=== PATIENT | male | born 1970 | race Caucasian/White ===

== ENCOUNTER 2016-12-01 02:09 | Emergency (ER) | payer OTHER ==
[~2016-12-01] VITALS: Ht 188 cm; Wt 157.4 kg
[2016-12-01 02:13] VITALS: TEMP 36.7; Ht 188 cm; Wt 157.4 kg
[2016-12-01] MEDS ORDERED: KETOROLAC TROMETHAMINE 30 MG/ML VIAL IV STA (02:22)
[2016-12-01 02:35] VITALS: O2SAT 98
[2016-12-01 02:48] LABS: BASO % 0.3 %; BASO ABS # 0.03 K/uL (0-0.2); COMPLETE YES; EOS % 0.8 %; HEMATOCRIT 43.5 % (42-52); IG% 0.4 %; LYMPH % 25.8 %; LYMPH ABS # 2.57 K/uL (1.2-3.4); MEAN CELL VOLUME 86.7 fL (80-100); MEAN CORPUSCULAR HEMOGLOBIN 29.5 pg (25-34); MEAN PLATELET VOLUME 8.8 fL (7.4-10.4); MONO % 7.4 %; NEUT % 65.3 %; PLATELET COUNT 216 K/uL (130-400); RED BLOOD COUNT 5.02 M/uL (4.7-6.1); WHITE BLOOD COUNT 9.95 K/uL (4.8-10.8)
[2016-12-01 03:08] LABS: BUN/CREATININE RATIO 14.6 (10-20); CALCIUM 8.5 mg/dl (8.5-10.1); CREATININE 0.75 mg/dl (0.60-1.40); POTASSIUM 3.6 mmol/L (3.5-5.1)
[2016-12-01] MEDS ORDERED: INSDGIPEN SC (03:11)
[2016-12-01] MEDS ORDERED: EZET10TA63 PO (03:11)
[2016-12-01] MEDS ORDERED: POTA10CA28 PO (03:11)
[2016-12-01] MEDS ORDERED: BENZ1GEL24 TOP (03:11)
[2016-12-01] MEDS ORDERED: TRAZ100T29 PO (03:11)
[2016-12-01] MEDS ORDERED: BUSP15TA70 PO (03:11)
[2016-12-01] MEDS ORDERED: HYDR-3983 PO (03:11)
[2016-12-01] MEDS ORDERED: FLUO40CA8 PO (03:11)
[2016-12-01] MEDS ORDERED: LISI-729 PO (03:11)
[2016-12-01] MEDS ORDERED: FLUT0.15 NAE (03:11)
[2016-12-01] MEDS ORDERED: CLIN1LOT5 TOP (03:11)
[2016-12-01] MEDS ORDERED: DEXT4CHW60 PO (03:11)
[2016-12-01] MEDS ORDERED: HYDCR1CL TOP (03:11)
[2016-12-01] MEDS ORDERED: NICO21DI35 TD (03:11)
[2016-12-01] MEDS ORDERED: FRS/40 PO (03:11)
[2016-12-01] MEDS ORDERED: BACL10TA PO (03:11)
[2016-12-01] MEDS ORDERED: GABA1CAP5 PO (03:11)
[2016-12-01] MEDS ORDERED: NVLG SC (03:11)
[2016-12-01] MEDS ORDERED: SIMV40TA2 PO (03:11)
[2016-12-01] MEDS ORDERED: CLIN300C10 PO (03:11)
[2016-12-01] MEDS ORDERED: ASPI81TA28 PO (03:11)
[2016-12-01] MEDS ORDERED: RIVA1.5T PO (03:11)
[2016-12-01] MEDS ORDERED: OMEP40CA41 PO (03:11)
[2016-12-01 03:19] LABS: ALB/GLOB RATIO 0.7 (0.9-2); THYROID STIMULATING HORMONE 3.49 uIu/ml (0.300-4.500)
[2016-12-01] MEDS ORDERED: OPTIRAY 320 IV PRN (03:30)
[2016-12-01] MEDS ORDERED: CALCIUM CARBONATE 500 MG CHEWABLE PO ONE (05:45)
--- NOTE | 2016-12-01 06:12 | EMERGENCY ROOM VISIT NOTE ---
History First contact with patient: 02:13 Chief Complaint: CHEST PAIN Stated Complaint: CHEST PAIN Nursing Triage Summary: pt c/o left sided chest pain and back pain x 1 hour. pt was sent from [facility] to [facility]. pt reports that he has a sore under his left breast and also on right buttocks. pt had an I& D 2 days ago. +MRSA History of Present Illness The patient is a 46 year old male who presents to the Emergency Room with complaints of left-sided chest pain that began less than one hour ago. The patient states the pain has been coming and going and he rates it a 6/10. The patient does not live locally. He was seen at [facility], and was being transported by S to the [facility] psychiatric facility on a 201. The patient has a history of depression and suicidal ideation. The patient evidently transported well without significant difficulty, until he arrived at the [facility]. Upon arrival he reports that he had chest pain, and now presents for evaluation and clearance. The patient has a history of diabetes and MRSA. He has chronic pain that he takes Vicodin for. Evidently the patient was admitted to the [facility] for 7 days, and is now being transferred to a psychiatric facility. The patient has not had fever or chills. Much of the history is otherwise limited secondary to the patient's condition. He rates his pain a 10/10. He is requesting Vicodin. Review of Systems More than 10 systems were reviewed and otherwise negative with the exception of history of present illness. Past Medical/Surgical History History of diabetes and mental health disease Family History No pertinent family history Social History Smoking Status: Current Every Day Smoker Current/Historical Medications Scheduled Aspirin (Aspirin Ec), 81 MG PO DAILY WITH FOOD Buspirone Hcl (Buspar), 15 MG PO TID Clindamycin Hcl (Clindamycin Hcl), 300 MG PO Q6H Ezetimibe (Zetia), 10 MG PO DAILY Fluoxetine (Prozac), 80 MG PO DAILY Fluticasone Propionate (Nasal) (Flonase Allergy Relief), 2 SPRAYS TESS DAILY Furosemide (Lasix), 40 MG PO BID Gabapentin (Neurontin), 800 MG PO TID Insulin Aspart (Novolog), 15 UNITS SC TIDM Insulin Glargine (Lantus Solostar), 60 UNITS SC HS Lisinopril (Prinivil), 5 MG PO DAILY Nicotine (Nicoderm Cq 21MG Patch), 1 PATCH TD DAILY Omeprazole (Prilosec), 40 MG PO DAILYBB Potassium Chloride (Micro-K Ext Rel), 10 MEQ PO DAILY Rivaroxaban (Xarelto), 15 MG PO BID Simvastatin (Zocor), 40 MG PO HS Scheduled PRN Baclofen (Lioresal), 10 MG PO TID PRN for Muscle Spasms Benzoyl Peroxide (Benzoyl Peroxide), 1 APPLN TOP DAILY PRN for AFFECTED AREA Clindamycin Phosphate (Topical (Clindamycin Phosphate), 1 APPLN TOP DAILY PRN for AFFECTED AREA Dextrose (Diabetic Use) (Glucose), 1-2 TABS PO DIRECTED PRN for LOW BLOOD SUGARS Hydrocodone/Acetaminophen 7.5MG/325MG ([place] 7.5MG/325MG), 1 TAB PO Q8 PRN for Pain Hydrocortisone 1% (Hydrocortisone 1%), 1 APPLN TOP BID PRN for RASH ON HANDS Trazodone Hcl (Trazodone), 400 MG PO HS PRN for Sleep Allergies Uncoded Allergies: LEATHER (Allergy, Unknown, hives, 12/01/16) Physical Exam Vital Signs Date Time Temp Pulse Resp B/P Pulse Ox O2 Delivery O2 Flow Rate FiO2 12/01/16 04:18 62 16 130/81 97 Room Air 12/01/16 02:35 98 Room Air 12/01/16 02:22 77 12/01/16 02:13 36.7 76 16 142/76 97 Room Air 12/01/16 02:13 96 Room Air Physical Exam VITALS: Vitals are noted on the nurse's note and reviewed by myself. Vital signs stable. GENERAL: Well-developed, well-nourished, white male who does not appear toxic. He has flight of ideas and is very tangential in speaking. He will answer questions appropriately and is fairly is cooperative with the examination. HEAD: Normocephalic atraumatic. EARS: External ear normal. External auditory canals clear, tympanic membranes pearly self without erythema or effusion bilaterally. EYES: Pupils equal round and reactive to light and accommodation. Conjunctivae without injection, sclerae without icterus. Extraocular movements intact. NOSE: Patent, turbinates without inflammation or discharge. MOUTH: Mucous membranes moist. Tonsils are not enlarged. Pharynx without erythema, blood, or exudate. Uvula midline. Airway patent. NECK: Supple without nuchal rigidity. No lymphadenopathy. No thyromegaly. Cervical spine is nontender. HEART: Regular rate and rhythm without murmurs gallops or rubs. LUNGS: Clear to auscultation bilaterally without wheezes, rales or rhonchi. No retractions or accessory muscle use. ABDOMEN: Positive normal bowel sounds x 4. Soft, nontender, without masses or organomegaly. No guarding or rebound tenderness. MUSCULOSKELETAL: No muscle atrophy, erythema, or edema noted. Full range of motion without joint tenderness in all extremities. NEURO: Patient was alert and oriented to person place and time. CN II through XII grossly intact. SKIN: The skin was with healing incised and drained abscess in the lower back. This appears to be healing fairly well. Medical Decision & Procedures ER Provider Diagnostic Interpretation: Preliminary Findings Only See Final Report For Complete Findings CTA CHEST: No evidence of PE. Lungs are clear. Paraseptal emphysema at the upper lobes. No pleural effusions. No adenopathy. Heart size is normal. Aorta is unremarkable. Hepatic steatosis. Laboratory Results 12/01/16 02:35 Red Blood Count 5.02, Mean Corpuscular Volume 86.7, Mean Corpuscular Hemoglobin 29.5, Mean Corpuscular Hemoglobin Concent 34.0, Mean Platelet Volume 8.8, Neutrophils (%) (Auto) 65.3, Lymphocytes (%) (Auto) 25.8, Monocytes (%) (Auto) 7.4, Eosinophils (%) (Auto) 0.8, Basophils (%) (Auto) 0.3, Neutrophils # (Auto) 6.49, Lymphocytes # (Auto) 2.57, Monocytes # (Auto) 0.74, Eosinophils # (Auto) 0.08, Basophils # (Auto) 0.03 12/01/16 02:35 Test 12/01/16 02:35 12/01/16 02:41 White Blood Count 9.95 K/uL (4.8-10.8) Red Blood Count 5.02 M/uL (4.7-6.1) Hemoglobin 14.8 g/dL (14.0-18.0) Hematocrit 43.5 % (42-52) Mean Corpuscular Volume 86.7 fL (80-100) Mean Corpuscular Hemoglobin 29.5 pg (25-34) Mean Corpuscular Hemoglobin Concent 34.0 g/dl (32-36) Platelet Count 216 K/uL (130-400) Mean Platelet Volume 8.8 fL (7.4-10.4) Neutrophils (%) (Auto) 65.3 % Lymphocytes (%) (Auto) 25.8 % Monocytes (%) (Auto) 7.4 % Eosinophils (%) (Auto) 0.8 % Basophils (%) (Auto) 0.3 % Neutrophils # (Auto) 6.49 K/uL (1.4-6.5) Lymphocytes # (Auto) 2.57 K/uL (1.2-3.4) Monocytes # (Auto) 0.74 K/uL (0.11-0.59) Eosinophils # (Auto) 0.08 K/uL (0-0.5) Basophils # (Auto) 0.03 K/uL (0-0.2) RDW Standard Deviation 42.3 fL (36.4-46.3) RDW Coefficient of Variation 13.3 % (11.5-14.5) Immature Granulocyte % (Auto) 0.4 % Immature Granulocyte # (Auto) 0.04 K/uL (0.00-0.02) Anion Gap 6.0 mmol/L (3-11) Est Creatinine Clear Calc Drug Dose 195.5 ml/min Estimated GFR () 127.5 Estimated GFR (Non- 110.0 BUN/Creatinine Ratio 14.6 (10-20) Calcium Level 8.5 mg/dl (8.5-10.1) Total Bilirubin 0.3 mg/dl (0.2-1) Aspartate Amino Transf (AST/SGOT) 50 U/L (15-37) Alanine Aminotransferase (ALT/SGPT) 56 U/L (12-78) Alkaline Phosphatase 117 U/L (45-117) Total Protein 8.1 gm/dl (6.4-8.2) Albumin 3.2 gm/dl (3.4-5.0) Globulin 4.9 gm/dl (2.5-4.0) Albumin/Globulin Ratio 0.7 (0.9-2) Lipase 162 U/L (73-393) Thyroid Stimulating Hormone (TSH) 3.490 uIu/ml (0.300-4.500) Bedside D-Dimer > 450 ng/mlFEU (0-450) Bedside Troponin I 0.000 ng/ml (0-0.045) Medications Administered Medications (Trade) Dose Ordered Sig/Magdalena Route Start Time Stop Time Status Last Admin Dose Admin Ketorolac Tromethamine (Toradol Inj) 30 mg NOW STAT IV 12/01/16 02:22 12/01/16 02:24 DC 12/01/16 02:46 30 MG ED Course Physical exam and history were performed. Nursing notes and EMR were reviewed. Patient appears to have chest pain after being transferred from [facility] to the [facility]. The patient is fairly cooperative and will answer simple questions. He is very tangential in speaking and obtaining a full history is difficult. He does report chest pain as his primary complaint. IV access was established and labs were obtained. The patient was given 30 mg IV Toradol for comfort. The patient's blood work is as above and was reviewed. He does not have a significantly elevated white blood cell count, gross anemia, bandemia, or significant electrolyte imbalance. EKG was normal sinus rhythm at 71 bpm without ischemia or ectopy. Lipase and transaminases are nondiagnostic. Troponin 1 is negative. The patient's d-dimer was elevated a CT scan of the chest was performed. CT scan does not show acute finding such as PE. The patient remained in stable condition on the revolving field assembler without dysrhythmic episode. Overall the patient appears to be medically cleared. I suspect that much of his chest pain is related to anxiety and his underlying mental health disease. The patient has been accepted by the [facility] locally. They have yet to perform their psychiatric evaluation of the patient. The patient is expressing to me that he desires to go home, however this appears unreasonable as he does require psychiatric evaluation under the terms of his 201. The patient will be transferred back to the [facility] for appropriate care. He was otherwise invited back to the emergency department with any new, worsening, or concerning symptoms. The chart was completed utilizing [employer] Speech Voice Recognition Software. Grammatical errors, random word insertions, pronoun errors, and incomplete sentences are an occasional consequence of this system due to software limitations, ambient noise, and hardware issues. Any formal questions or concerns about the content, text, or information contained within the body of this dictation should be directly addressed to the provider for clarification. . Medical Decision Differential diagnosis: Etiologies such as myocardial infarction, PE, mood disorder, infection, hypoglycemia, electrolyte abnormalities, cardiac sources, intracerebral event, toxicologic, neurologic, as well as others were entertained. Impression Primary Impression: Non-cardiac chest pain Departure Information Dispostion Mental Health Acute Care Condition [facility] Forms HOME CARE DOCUMENTATION FORM, IMPORTANT VISIT INFORMATION Patient Instructions My [facility] Additional Instructions You were seen and evaluated today on an emergency basis only. This is not a substitute for, or an effort to provide, complete comprehensive medical care. It is not possible to recognize and treat all injuries or illnesses in a single emergency department visit. For this reason it is recommended that you followup with the staff at the [facility] today for ongoing care and evaluation. You are welcome to return to the emergency department anytime with new, worsening, or concerning symptoms.
[2016-12-01 07:19] VITALS: BP 126/75; PULSE 67; O2SAT 94
--- NOTE | 2016-12-01 07:19 | DIAGNOSTIC IMAGING REPORT ---
CHEST CTA for PULMONARY ARTERIES CT DOSE: 958.03 mGy.cm HISTORY: Chest pain dyspnea TECHNIQUE: Multiaxial CT images of the chest were performed following the intravenous administration of contrast to evaluate the pulmonary arteries. Maximal intensity projection images were also obtained. COMPARISON STUDY: None. FINDINGS: There is a normal caliber thoracic aorta with no evidence for dissection. There is no evidence for pulmonary embolus. No pleural effusions. No pneumothorax. The liver and spleen are unremarkable. No mediastinal or hilar lymphadenopathy. The central airways are patent. The lungs are clear. IMPRESSION: No evidence for pulmonary embolus. Lungs are clear. Electronically signed by: Rishabh Posey M.D. 12/01/2016 7:18 AM Dictated Date/Time: 12/01/2016 7:10 AM
--- NOTE | 2016-12-01 07:26 | DIAGNOSTIC IMAGING REPORT ---
SINGLE VIEW CHEST CLINICAL HISTORY: Atypical chest pain. FINDINGS: An AP, portable, upright chest radiograph is obtained. No prior studies are available for comparison at the time of dictation. The examination is degraded by portable technique and patient rotation. The cardiomediastinal silhouette is unremarkable. The lungs and pleural spaces are clear. No pneumothorax is seen. The bony thorax is grossly intact. IMPRESSION: No active disease in the chest. Electronically signed by: Max Harry M.D. 12/01/2016 7:24 AM Dictated Date/Time: 12/01/2016 7:24 AM
== END 2016-12-01 08:03 ==
LOC: EDBD 02:09 → C.EDB 02:12
DX: R07.89 Other chest pain (principal); F32.9 Major depressive disorder, single episode, unspecified; E11.9 Type 2 diabetes mellitus without complications; Z86.14 Personal history of Methicillin resistant Staphylococcus aureus infection; Z79.4 Long term (current) use of insulin; Z79.82 Long term (current) use of aspirin; Z79.899 Other long term (current) drug therapy; F17.200 Nicotine dependence, unspecified, uncomplicated